=== PATIENT | male | born 1960 | race American Indian/Alaskan Native ===

== ENCOUNTER → 2022-03-17 09:56 | Outpatient (CLI) | payer OTHER, SELFPAY ==
--- NOTE | 2022-03-17 | DI.RAD.S_ITS ---
PROCEDURE: XR SHOULDER RT MIN 2V INDICATIONS: RIGHT SHOULDER /BILATERAL KNEE PAIN TECHNIQUE: 3 views of the shoulder were acquired. COMPARISON: None. FINDINGS: Bones: No acute fracture or dislocation. No suspicious bony lesions. Degenerative changes are present at the acromioclavicular joint. There is mild calcific tendinitis of the rotator cuff. Soft tissues: No suspicious soft tissue calcifications. IMPRESSION: Degenerative change at the AC joint and calcific tendinitis at the rotator cuff. Dictated by: Mela Forde M.D. on 03/17/2022 at 12:44 Approved by: Mela Forde M.D. on 03/17/2022 at 12:45
--- NOTE | 2022-03-17 | DI.RAD.S_ITS ---
PROCEDURE: XR KNEE RT 3V INDICATIONS: RIGHT SHOULDER /BILATERAL KNEE PAIN TECHNIQUE: 3 views of the knee were acquired. COMPARISON: None. FINDINGS: Bones: No fractures or dislocations. No suspicious bony lesions. Soft tissues: No joint effusion. No suspicious soft tissue calcifications. IMPRESSION: No acute fracture. No osseous lesion. If symptoms and/or clinical suspicion for pathology persist, further assessment with repeat, or advanced imaging (e.g., CT, MRI, or bone scan) may be helpful for further assessment. Dictated by: Winnie Celis M.D. on 03/17/2022 at 14:31 Approved by: Winnie Celis M.D. on 03/17/2022 at 14:31
--- NOTE | 2022-03-17 | DI.RAD.S_ITS ---
PROCEDURE: XR KNEE LT 3V INDICATIONS: RIGHT SHOULDER /BILATERAL KNEE ---PAIN TECHNIQUE: 3 views of the knee were acquired. COMPARISON: None. FINDINGS: Bones: No fractures or dislocations. No suspicious bony lesions. Mild narrowing of the medial femoral tibial and the lateral patello femoral knee joints. Soft tissues: No joint effusion. No suspicious soft tissue calcifications. 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 Dictated by: Harlan AGUIRRE Interpreted: Winnie Celis MD on 03/17/2022 at 10:41 Transcribed by: FELIPE on 03/17/2022 at 10:42 Approved by: Winnie Celis M.D. on 03/17/2022 at 15:19
== END ==
PROVIDERS: Referring Provider Internal Medicine Cardiovascular Disease; Visit Provider Internal Medicine Cardiovascular Disease
DX: M17.12 Unilateral primary osteoarthritis, left knee (principal); M25.511 Pain in right shoulder; M25.561 Pain in right knee; M75.31 Calcific tendinitis of right shoulder; M25.562 Pain in left knee
CPT/HCPCS: 73030; 73562